=== PATIENT | female | born 1970 | race Caucasian/White ===

== ENCOUNTER → 2016-08-13 | Outpatient (CLI) | payer OTHER, BC ==
[~2016-08-13] MED LIST: CANA300T PO; CARTIA XT240 MG PO; DAZIDOX10 MG PO; FLEXERIL 1010 MG/TAB PO; FORTAMET500 MG PO; GLIPIZIDE; GLUCOPHAGE1000 MG PO; GLUCOTROL10 MG; IMODIUM 2MG CAPS2 MG PO; INSULIN LANTUS; KLONOPIN 0.5MG0.5 MG PO; KLONOPIN 1MG1 MG PO; LANTUS100 U/ML; MOBIC 7.5MG7.5 MG PO; MORPHINE SULFAT30 M5 PO; PERCOCET 325 MG1 TA2 PO; PRINIVIL2.5 MG PO; REGLAN 10MG10 MG/TAB PO; ULTRAM 50MG TAB50 MG PO; VICODIN PO; VICTOZA6 MG/ML SC; ZOFRAN 4MG T4 MG/TAB PO
== END ==
LOC: BHSO 08:00
DX: F41.1 Generalized anxiety disorder (principal)

== ENCOUNTER → 2017-05-25 | Outpatient (CLI) | payer OTHER, BC | LOC: BHSO 08:00 | DX: F41.1 Generalized anxiety disorder (principal) | CPT/HCPCS: G0463 ==

== ENCOUNTER → 2017-07-04 | Outpatient (CLI) | payer OTHER, BC | LOC: BHSO 10:35 | DX: F33.2 Major depressive disorder, recurrent severe without psychotic features (principal) ==

== ENCOUNTER → 2017-07-20 | Outpatient (CLI) | payer OTHER, BC | LOC: BHSO 13:57 | DX: F33.1 Major depressive disorder, recurrent, moderate (principal) | CPT/HCPCS: G0463 ==

== ENCOUNTER → 2017-09-02 | Outpatient (CLI) | payer OTHER, BC | LOC: BHSO 09:39 | DX: F33.41 Major depressive disorder, recurrent, in partial remission (principal) | CPT/HCPCS: G0463 ==

== ENCOUNTER → 2017-11-02 | Outpatient (CLI) | payer OTHER | LOC: BHSO 08:02 | DX: F33.42 Major depressive disorder, recurrent, in full remission (principal) | CPT/HCPCS: G0463 ==

== ENCOUNTER → 2018-01-12 | Outpatient (CLI) | payer OTHER, BC | LOC: BHSO 09:39 | DX: F41.1 Generalized anxiety disorder (principal) | CPT/HCPCS: G0463 ==

== ENCOUNTER 2018-01-20 09:15 | Day surgery (SDC) | payer OTHER ==
[~2018-01-20] VITALS: Ht 172.7 cm; Wt 113.8 kg
[2018-01-20 09:36] VITALS: BP 115/81; PULSE 72; TEMP 98.2
[2018-01-20] MEDS ORDERED: KLONOPIN 0.5MG0.5 MG PO (09:39)
[2018-01-20] MEDS ORDERED: VIIBRYD40 MG PO (09:40)
[2018-01-20 11:00] VITALS: BP 99/69; PULSE 74; TEMP 97.7
[2018-01-20 11:15] VITALS: BP 97/67; PULSE 71
[2018-01-20 11:30] VITALS: BP 88/62; PULSE 73
== END 2018-01-20 12:00 | disposition home or self-care (01) ==
LOC: SDCO 09:15
DX: K31.7 Polyp of stomach and duodenum (principal); K21.9 Gastro-esophageal reflux disease without esophagitis; K44.9 Diaphragmatic hernia without obstruction or gangrene; J45.909 Unspecified asthma, uncomplicated; E11.40 Type 2 diabetes mellitus with diabetic neuropathy, unspecified; E11.649 Type 2 diabetes mellitus with hypoglycemia without coma; I10 Essential (primary) hypertension; G43.909 Migraine, unspecified, not intractable, without status migrainosus; G89.29 Other chronic pain; F32.9 Major depressive disorder, single episode, unspecified; F41.9 Anxiety disorder, unspecified; G47.30 Sleep apnea, unspecified; I20.9 Angina pectoris, unspecified; Z79.84 Long term (current) use of oral hypoglycemic drugs; Z90.710 Acquired absence of both cervix and uterus; Z90.49 Acquired absence of other specified parts of digestive tract; Z88.8 Allergy status to other drugs, medicaments and biological substances; Z80.8 Family history of malignant neoplasm of other organs or systems; Z80.42 Family history of malignant neoplasm of prostate; Z82.49 Family history of ischemic heart disease and other diseases of the circulatory system
CPT/HCPCS: OP; J2250; J2704; J7030

== ENCOUNTER → 2018-08-07 | Outpatient (CLI) | payer SELFPAY ==
[~2018-08-07] MED LIST changes: +VIIBRYD40 MG PO
== END ==
LOC: BHSO 14:17
DX: F41.1 Generalized anxiety disorder (principal)
CPT/HCPCS: G0463

== ENCOUNTER → 2019-03-12 | Outpatient (CLI) | payer OTHER | LOC: BHSO 13:15 | DX: F41.1 Generalized anxiety disorder (principal) | CPT/HCPCS: G0463 ==

== ENCOUNTER 2019-06-08 10:53 | Emergency (ER) | payer OTHER ==
[~2019-06-08] VITALS: Ht 172.7 cm; Wt 99.1 kg
[2019-06-08 11:04] VITALS: TEMP 97.6
[2019-06-08 12:30] VITALS: PULSE 87
== END 2019-06-08 12:40 | disposition home or self-care (01) ==
LOC: COL.ER 10:53
DX: S99.921A Unspecified injury of right foot, initial encounter (principal); S99.911A Unspecified injury of right ankle, initial encounter; Z79.84 Long term (current) use of oral hypoglycemic drugs; W17.2XXA Fall into hole, initial encounter

== ENCOUNTER → 2020-02-28 | Outpatient (CLI) | payer MEDICAID | LOC: BHSO 14:50 | DX: F41.1 Generalized anxiety disorder (principal) | CPT/HCPCS: G0463 ==